=== PATIENT | male | born 1990 | race Caucasian/White ===

== ENCOUNTER → 2017-01-02 | Outpatient (CLI) | payer OTHER ==
[~2017-01-02] MED LIST: SUBOXONE 8 M1 TABLET SL
== END | disposition home or self-care (01) ==
LOC: CT 20:40 → RAD 20:40
DX: K59.00 Constipation, unspecified (principal)
CPT/HCPCS: 74176

== ENCOUNTER 2017-04-03 09:49 | Emergency (ER) | payer OTHER ==
[~2017-04-03] VITALS: Ht 170.2 cm; Wt 69.0 kg
[2017-04-03 10:36] LABS: EOSINOPHIL (%) 2.3 % (0-5); EOSINOPHIL COUNT 0.3 K/uL (0-0.3); HEMATOCRIT 39.3 % (38.0-50.0); IMMATURE GRANULOCYTE (%) 0.3 % (0.0-0.7); INSTRUMENT ABS NEUTROPHIL CT 8.5 K/uL; MCH 29.2 PG (29.0-34.0); MCHC 35.1 G/DL (30.0-36.0); MCV 83.3 FL (86-99); MEAN PLAT.VOLUME 9.1 uM^3 (9.0-12.4); MONOCYTE (%) 7.1 % (3-12); MONOCYTE COUNT 0.8 K/uL (0-0.8); NEUTROPHIL COUNT 8.5 K/uL (1.8-6.4); PLATELET COUNT 187 K/uL (156-360); RBC DIS.WIDTH-CV 11.9 % (11.8-14.6); RBC DIS.WIDTH-SD 36.1 % (39-53); RED BLOOD COUNT 4.72 M/uL (4.00-5.50); WHITE BLOOD COUNT 11.7 K/uL (4.1-10.2)
[2017-04-03 10:44] LABS: D-DIMER ELISA < 150.00 ng/mLDDU (<230)
[2017-04-03 10:47] LABS: CHLORIDE 103 mEq/L (99-109); POTASSIUM 4.1 mEq/L (3.7-5.4); SODIUM 141 mEq/L (136-147)
[2017-04-03 10:48] LABS: GLUCOSE 100 mg/dL (70-99)
[2017-04-03 10:50] LABS: ANION GAP 9 MEQ/L (2-14)
[2017-04-03 10:52] LABS: GFR ESTIMATE (CALCULATED) > 59 mL/min/
[2017-04-03 10:53] LABS: UREA NITROGEN (BUN) 15 mg/dL (9-23)
[2017-04-03 10:57] LABS: TROP-I INTERPRETATION NEGATIVE; TROPONIN-I < 0.01 ng/mL (0.0-0.30)
[2017-04-03] MEDS ORDERED: MOTRIN800 MG PO (12:59)
[2017-04-03 13:03] VITALS: BP 110/61
== END 2017-04-03 13:19 | disposition home or self-care (01) ==
LOC: EME 09:49
PROVIDERS: Emergency Medicine
DX: R07.89 Other chest pain (principal); F17.200 Nicotine dependence, unspecified, uncomplicated
CPT/HCPCS: 71010; 80048; 84484; 85025; 85379; 93005; 99281; 99285